=== PATIENT | female | born 1995 | race Hispanic/Latino ===

== ENCOUNTER 2020-04-21 10:19 | Inpatient (IN) | payer OTHER, SELFPAY ==
[2020-04-21] VITALS (37 sets, daily range): BP systolic 81–138; BP diastolic 43–87; PULSE 64–251; RESP 18; TEMP 36.9–37.1; O2SAT 100; BMI 27.7
[2020-04-21 11:24] LABS: Basophils Percent Auto 0.3 % (0.2-1.2); Eosinophils Absolute Auto 0.1 K/mm3 (0-0.3); Eosinophils Percent Auto 0.5 % (0-4.4); Hematocrit 31.3 % (37.0-47.0); Hemoglobin 9.8 g/dL (12.0-15.0); Immature Granulocyte Absolute 0.14 K/mm3 (0.00-0.031); Immature Granulocyte Percent A 1.3 % (0-0.5); Lymphocytes Percent Auto 15.9 % (18.3-44.2); Mean Corpuscular HGB Conc 31.3 g/dl (32-36); Mean Corpuscular Hemoglobin 24.4 pg (26-34); Mean Corpuscular Volume 77.9 fl (80-100); Mean Platelet Volume 9.9 fl (7.4-10.4); Monocytes Absolute Auto 0.7 K/mm3 (0.1-0.6); Monocytes Percent Auto 6.2 % (2.6-8.5); Neutrophils Absolute Auto 8.1 K/mm3 (1.3-6.7); Neutrophils Percent Auto 75.8 % (45.5-73.1); Platelet Count Result 313 k/mm3 (150-375); Red Blood Count 4.02 M/mm3 (4.2-5.4); Red Cell Distribution Width 15.7 % (11.5-14.5); White Blood Count 10.7 K/mm3 (4.5-10.0)
[2020-04-21] MEDS: OXYTOCIN 30 UNITS/NS 500 ML 30 UNITS/500 ML BAG IV CONT (11:45)
[2020-04-21] MEDS: LACTATED RINGERS 1,000 ML 125 ML IV CONT (11:46)
[2020-04-21] MEDS: AMPICILLIN 2 GM/NS 100 ML 2 GM/100 ML BAG IVPB (11:46)
--- NOTE | 2020-04-21 11:50 | LDADM ---
This patient, Juanita Schmitz, was admitted to Labor/Delivery/Recovery 106 on 04/21/20 at 10:19. Plans for labor, pain management and were discussed with patient. Patient/family oriented to hospital policies and general routines including ID bracelet, bed and alarms, visiting hours, pain management, procedures, bathroom and other care routines, personal items, smoking policy, room service/diet and guest tray routines, infant security routines, and visiting hours. Patient/Family are encouraged to report perceived risks to care and to ask questions if they do not understand what they are told or what they should do. See OBIX for further documentation.
--- NOTE | 2020-04-21 13:10 | PM.IMHP ---
H&P: HPI History of Present Illness Chief complaint: r/o rom Narrative: Juanita Schmitz is a 24 year old female was admitted at 39 and half weeks gestation in active labor. Her has been followed by Dr. taylor benavides in is apparently been complicated. Her group B strep status is unknown so we are treating her prophylactically as we tried to find that answer Review of Systems Review of Systems: All systems reviewed & are unremarkable except as noted in HPI and below PMFSH Family History Family History Grandparent Diabetes mellitus Mother Hypertension Social History Social History Smoking status: Never smoker Substance use: never Spiritual care concerns: No Meds Home Medications and Allergies Home Medications Medication Instructions Recorded Confirmed Type levetiracetam [Keppra] 1,000 mg PO BID 04/21/20 04/21/20 History valacyclovir [Valtrex] 800 mg PO DAILY 04/21/20 04/21/20 History Allergies Allergy/AdvReac Type Severity Reaction Status Date / Time No Known Allergies Allergy Unverified 08/16/18 08:57 Vital Signs Vital Signs - 24 hr 04/21/20 10:37 04/21/20 10:38 04/21/20 10:45 Temperature 98.7 F Pulse Rate 82 88 Blood Pressure 121/78 113/82 04/21/20 11:00 04/21/20 11:15 04/21/20 11:30 Temperature Pulse Rate 77 86 73 Blood Pressure 112/70 102/74 123/75 04/21/20 11:45 04/21/20 12:00 04/21/20 12:15 Temperature Pulse Rate 74 71 74 Blood Pressure 119/84 121/74 120/70 04/21/20 12:30 04/21/20 12:45 04/21/20 13:00 Temperature Pulse Rate 67 83 77 Blood Pressure 116/72 127/68 117/76 Exam Const: General: no acute distress Eyes: General: appearance normal, both eyes and all related structures Neck: Neck: supple and no JVD Thyroid: thyroid normal Resp: Effort & Inspection: normal respiratory effort Auscultation: clear to auscultation bilaterally Cardio: Rate: regular rate Rhythm: regular rhythm GI: Percussion: Yes normal to percussion (Gravid uterus with contractions every 3 minutes) : General: Yes other (Cervix on admission was 3 with clear fluid. heart tones reassuring) Skin: General skin exam: no rashes or lesions noted Extrem: General: normal to inspection and no edema Psych: Mental Status: mental status grossly normal Affect: normal affect H&P: Results Labs Labs: Short CBC 04/21/20 Range/Units 11:13 WBC 10.7 H (4.5-10.0) K/mm3 Hgb 9.8 L (12.0-15.0) g/dL Hct 31.3 L (37.0-47.0) % Plt Count 313 (150-375) k/mm3 Assessment and Plan Additional Plan Special: Term in active labor Plan: Spontaneous vaginal delivery is expected. Group B strep prophylaxis for unknown group B strep status. She has an epidural candidate
[2020-04-21] MEDS: AMPICILLIN 1 GM/NS 50 ML 1 GM/50 ML BAG IVPB (15:46)
--- NOTE | 2020-04-21 17:56 | PM.OBPRVD ---
OB - Delivery Note Procedure Procedure: Patient pushed for a spontaneous vaginal delivery. The fetus was delivered atraumatically and placed on the maternal abdomen. The cord was clamped and cut after 1 minute of life. The cord was double clamped and cut and a segment of cord was collected for cord gases. Cord blood was collected for blood type and Coomb's testing. The placenta delivered spontaneously and was noted to be intact. The perineum was inspected and there was a 2nd degree perineal laceration. The laceration was repaired with 3-0 vicryl in the usual fashion. The uterus was firm and good hemostasis was noted. The patient and fetus were stable in the delivery room. Intrapartal events: None Induction method: none Delivery augmentation: pitocin Delivery monitor: external FHT Route of delivery: Episiotomy description: None Laceration description: Perineal - 2nd Degree Delivery repair: vicryl Specimen: No Estimated blood loss (mL): 300 Anesthesia type: Local Disposition: floor () Complications: No immediate complications Baby Date of : 04/21/20 Time of : 17:41 Weeks of gestation at delivery: 39 Infant gender: Male Weight (pounds): 8 Weight (ounces): 3 presentation: vertex position: Right Occiput Anterior Placenta delivery description: Spontaneous cord vessel description: 3 Vessels score one minute: 9 score five minutes: 9
[2020-04-21] MEDS: WITCH HAZEL 40 PADS 1 PAD TOPICAL (18:44)
[2020-04-21] MEDS: BENZOCAINE 20% AER SPR (*SP) 56 GM CAN 1 SPRAY TOPICAL (18:44)
[2020-04-21] MEDS: OXYTOCIN 30 UNITS/NS 500 ML 30 UNITS/500 ML BAG 125 UNITS IV CONT (18:49)
[2020-04-21] MEDS: IBUPROFEN 600 MG TABLET PO (19:22)
[2020-04-21] MEDS: ACETAMINOPHEN 325 MG TABLET 650 MG PO (23:31)
--- NOTE | 2020-04-22 | PC.NURSE ---
2018 Patient, significant other and arrived to unit. Oriented to room, admission packet reviewed. Call light within reach and bed in low locked position. Svetlana DILLARD
[2020-04-22 05:40] LABS: Hematocrit 27.7 % (37.0-47.0); Hemoglobin 8.5 g/dL (12.0-15.0)
[2020-04-22 07:36] LABS: Rapid Plasma Reagin Non-Reactive (NonReactive)
[2020-04-22 08:00] VITALS: BP 110/68; PULSE 74; RESP 18; TEMP 37.1; O2SAT 100
--- NOTE | 2020-04-22 08:00 | PC.NURSE ---
PT introductions made and plan of care discussed per , pain management, bottle feeding, daily care activities. PT verbalized understanding of such care.
[2020-04-22] MEDS: levETIRAcetam 500 MG TABLET 1000 MG PO (08:04)
[2020-04-22] MEDS: IBUPROFEN 600 MG TABLET PO ×2 (08:05→12:56)
[2020-04-22] MEDS: ACETAMINOPHEN 325 MG TABLET 650 MG PO ×3 (08:05→18:17)
[2020-04-22] MEDS: POLYSACCHARIDE IRON COMPLEX 150 MG CAPSULE PO ×2 (08:06→18:18)
[2020-04-22] MEDS: DOCUSATE SODIUM 100 MG CAPSULE PO ×2 (08:06→18:18)
--- NOTE | 2020-04-22 08:34 | PM.OBDSVD ---
OB - DS: Summary OB Procedures : None OB Procedures Intrapartum: Spontaneous Vag Delivery OB Procedures: : None Status at Discharge Functional status at discharge: independent ambulation Overall status at discharge: patient is back to baseline Time Spent with Patient Time attestation: Total time spent providing and/or coordinating discharge services: Time spent: Less than 30 minutes Exam Const: General: comfortable and no acute distress Resp: Effort & Inspection: normal respiratory effort Auscultation: clear to auscultation bilaterally Cardio: Rate: regular rate GI: GI Palp: Yes Soft to palpation Auscultation: normal bowel sounds Other: Fundus firm below umbilicus Psych: Appearance: grossly normal Mental Status: mental status grossly normal Affect: normal affect DS: Data Data Completed and Pending Labs on day of discharge: Labs from last 24 hours 04/22/20 04/21/20 04/21/20 04:45 11:13 11:13 WBC RBC Hgb 8.5 L Hct 27.7 L MCV MCH MCHC RDW Plt Count MPV Immature Gran % (Auto) Neut % (Auto) Lymph % (Auto) Blaine % (Auto) Eos % (Auto) Baso % (Auto) Lymph # (Auto) Blaine # (Auto) Eos # (Auto) Baso # (Auto) Abs Immat Gran (auto) Absolute Neuts (auto) Absolute Nucleated RBC Nucleated RBC % RPR Non-reactive Blood Type O Positive Antibody Screen Negative 04/21/20 11:13 WBC 10.7 H RBC 4.02 L Hgb 9.8 L Hct 31.3 L MCV 77.9 L MCH 24.4 L MCHC 31.3 L RDW 15.7 H Plt Count 313 MPV 9.9 Immature Gran % (Auto) 1.3 H Neut % (Auto) 75.8 H Lymph % (Auto) 15.9 L Blaine % (Auto) 6.2 Eos % (Auto) 0.5 Baso % (Auto) 0.3 Lymph # (Auto) 1.70 Blaine # (Auto) 0.7 H Eos # (Auto) 0.1 Baso # (Auto) 0.0 Abs Immat Gran (auto) 0.14 H Absolute Neuts (auto) 8.1 H Absolute Nucleated RBC 0.0 Nucleated RBC % 0.0 RPR Blood Type Antibody Screen Discharge Plan Discharge Attending physician on discharge: Nba Sutton Discharging Clinician: Nba Sutton Patient Disposition: Home, Self-Care Activity: as tolerated and pelvic rest Diet: regular Discharge Instructions: call or return for temperature >100.4, bleeding >2 pads/hr for 2 hrs, pain not controlled with medications, signs/symptoms of mastitis Patient Instructions: Antibiotic Form Stand Alone Forms: General Discharge Information Follow-up/Referrals: Nba Sutton MD [Physician] - Discharge Medications: New ibuprofen 600 mg Tablet 600 mg PO Q6H PRN (Reason: Cramping) Qty: 30 RF: 0 acetaminophen [Mapap (acetaminophen)] 325 mg Tablet 650 mg PO Q6H PRN (Reason: Mild Pain (1-3) Or Headache) Qty: 30 RF: 0 Continued valacyclovir [Valtrex] 500 mg Tablet 800 mg PO DAILY RF: 0 levetiracetam [Keppra] 1,000 mg Tablet 1,000 mg PO BID RF: 0 Date of admission: 04/21/20 10:19 Primary Care Provider: JazminLucrecia Admitting Provider: Chad Rogers Attending physician on admission: Chad Rogers
[2020-04-22 20:45] VITALS: BP 124/84; PULSE 91; RESP 16; TEMP 36.3; O2SAT 100
[2020-04-24 10:15] VITALS: BP 107/67; PULSE 88; RESP 20
== END 2020-04-22 21:15 | disposition home or self-care (01) | DRG 807 ==
LOC: ANHOBOP 10:23 → ANHLDR 10:24 → ANHOBOP 10:41 → ANHOB2 04-22 08:36 → ANHLDR 04-23 13:30 → ANHOB2 04-23 13:30
PROVIDERS: Admitting Provider Obstetrics & Gynecology; Family Provider Obstetrics & Gynecology; PCP Registered Nurse; Visit Provider Student in an Organized Health Care Education/Training Program
DX: O70.1 Second degree perineal laceration during delivery (principal); Z37.0 Single live birth; Z3A.39 39 weeks gestation of pregnancy
CPT/HCPCS: 36415; 85014; 85018; 85025; 86592; 86850; 86900; 86901; A9270; J0290; J2590; J3010; J7120